=== PATIENT | female | born 1955 | race Caucasian/White ===

== ENCOUNTER 2017-06-09 10:25 | Inpatient (IN) | payer MEDICARE, MEDICAID ==
[~2017-06-09] VITALS: Ht 167.6 cm; Wt 67.9 kg
[~2017-06-09 10:25] MED LIST: ACET-784 PO; ACTONEL PO; ASPIRIN PO; AUD NEB; AZIT250T9 PO; BISA10S PR; CALC-959 PO; CEFX1I IM; DEXT15DR21 OU; DSS100 PO; FISH1CAP49 PO; FLUT16H NASAL; FOLI1 PO; HEP5KI SQ; LEVO75 PO; MOM30 PO; MONT10TA21 PO; MULTIVITAMIN PO; NORM2DIS4 IVP; PANT20TA PO; UBID100C PO; VITAMIN C PO; ZOCOR PO
[2017-06-09] MEDS ORDERED: IPRATROPIUM BROMIDE 0.5 MG/2.5 ML NEB SOLUTION NEB ONE (10:45)
[2017-06-09] MEDS ORDERED: LEVALBUTEROL HCL 1.25 MG/0.5 ML NEB SOLUTION NEB ONE (10:45)
[2017-06-09] MEDS ORDERED: SODIUM CHLORIDE 0.9% 2,000 ML IV ONE (10:45)
[2017-06-09] MEDS ORDERED: ACETAMINOPHEN 500 MG TABLET PO ONE (10:45)
[2017-06-09 11:10] LABS: BASOPHILS % (AUTO) 0.2 % (0.0-2.0); EOSINOPHILS % (AUTO) 0.4 % (1.0-6.0); HEMATOCRIT 45.1 % (36-46); HEMOGLOBIN 14.9 g/dL (12.0-16.0); LYMPHOCYTES # (AUTO) 1.2 K/uL (1.0-4.8); LYMPHOCYTES % (AUTO) 7.1 % (22.0-44.0); MEAN CORPUSCULAR HEMOGLOBIN 27.8 pg (26.0-34.0); MEAN CORPUSCULAR VOLUME 84 fL (80-100); MONOCYTES # (AUTO) 0.5 K/uL (0.1-1.0); MONOCYTES % (AUTO) 2.6 % (2.0-9.0); NEUTROPHILS # (AUTO) 15.9 K/uL (1.8-7.7); PLATELET COUNT (AUTO) 158 K/uL (150-450); RED BLOOD CELL COUNT(AUTO) 5.37 MIL/uL (4.00-5.20); RED CELL DISTRIBUTION WIDTH 15.7 % (11.5-14.5)
[2017-06-09 11:11] LABS: NEUTROPHILS % (AUTO) 89.7 % (40.0-70.0)
[2017-06-09] MEDS ORDERED: RISE35 PO (11:15)
[2017-06-09] MEDS ORDERED: ASCO500 PO (11:15)
[2017-06-09] MEDS ORDERED: ASPI81 PO (11:15)
[2017-06-09] MEDS ORDERED: ACETAMINOPHEN 1000 MG/ISO-OSM 100 ML IV ONE (11:15)
[2017-06-09] MEDS ORDERED: MULT1TAB70 PO (11:15)
[2017-06-09] MEDS ORDERED: SIMV-259 PO (11:15)
[2017-06-09] MEDS ORDERED: PANT40TA25 PO (11:15)
[2017-06-09 11:18] LABS: ANION GAP 9 mmol/L (8-16); CALCIUM, TOTAL 9.6 mg/dL (8.8-10.5); CARBON DIOXIDE 28 mmol/L (22-29); CHLORIDE 105 mmol/L (98-107); CREATININE 0.56 mg/dL (0.60-1.30); GLOMERULAR FILTR. RATE CALC > 60 mL/min (>60); GLUCOSE,RANDOM 103 mg/dL (70-110); POTASSIUM 4.4 mmol/L (3.5-5.1); SODIUM SERUM 142 mmol/L (136-145); UREA NITROGEN, BLOOD 21 mg/dL (7-18)
[2017-06-09 11:24] LABS: ALANINE AMINOTRANSFERASE 21 U/L (12-78); ALBUMIN 3.3 g/dL (3.4-5.0); ALKALINE PHOSPHATASE 117 U/L (46-116); ASPARTATE AMINOTRANSFERASE 17 U/L (15-37); BILIRUBIN,TOTAL 0.3 mg/dL (0.1-1.0); TOTAL PROTEIN, SERUM 8.6 g/dL (6.4-8.2)
[2017-06-09 11:27] LABS: LACTIC ACID 1.7 mmol/L (0.4-2.0)
[2017-06-09 11:34] LABS: APPEARANCE,URINE CLOUDY (CLEAR); BILIRUBIN,URINE NEGATIVE (NEGATIVE); GLUCOSE, URINE (UA) NEGATIVE (NEGATIVE); KETONES,URINE NEGATIVE (NEGATIVE); LEUKOCYTE ESTERASE ,URINE LARGE (NEGATIVE); NITRATE,URINE NEGATIVE (NEGATIVE); OCCULT BLOOD,URINE MODERATE (NEGATIVE); PH,URINE 6.5 (5.0-8.0); PROTEIN,URINE TRACE (NEGATIVE); UROBILINOGEN,URINE 0.2 mg/dL (<=1.0)
[2017-06-09 11:43] LABS: WBC,URINE 26-50 /HPF (0-5)
[2017-06-09 11:44] LABS: BACTERIA,URINE Many /HPF (None Seen); SQUAMOUS EPITHELIAL CELL,UR Many /LPF (None Seen)
[2017-06-09 11:51] LABS: B-TYPE NATRIURETIC PEPTIDE 20 pg/mL (0-100)
[2017-06-09 12:13] LABS: INFLUENZA TYPE A NEGATIVE FOR TYPE A (NEGATIVE)
[2017-06-09 12:14] LABS: INFLUENZA TYPE B NEGATIVE FOR TYPE B (NEGATIVE)
[2017-06-09] MEDS ORDERED: ACETAMINOPHEN 325 MG TABLET PO PRN ×2 (12:45→15:15)
[2017-06-09] MEDS ORDERED: 0.9% SODIUM CHLORIDE 10 ML SYRINGE IVP PRN (12:45)
[2017-06-09] MEDS ORDERED: CefTRIAXone SODIUM 1 GM in DEXTROSE 5%-WATER 10 ML IV ONE (12:45)
[2017-06-09] MEDS ORDERED: AZITHROMYCIN 500 MG/NS 250 ML IV ONE (12:45)
[2017-06-09] MEDS ORDERED: SODIUM CHLORIDE 0.9% 1,000 ML IV ONE ×2 (12:45→15:15)
[2017-06-09] MEDS ORDERED: ONDANSETRON HCL 4 MG/2 ML VIAL IVP PRN ×2 (12:45→15:15)
[2017-06-09] MEDS: ALBUTEROL SULFATE 2.5 MG/0.5 ML NEB SOLUTION NEB SCH ×3 (15:14→23:14)
[2017-06-09] MEDS: IPRATROPIUM BROMIDE 0.5 MG/2.5 ML NEB SOLUTION NEB SCH ×3 (15:14→23:14)
[2017-06-09] MEDS ORDERED: *CLINICAL-LEVOFLOXACIN IVPB DOSING CLINICAL ONE (15:15)
[2017-06-09] MEDS ORDERED: MAGNESIUM HYDROXIDE SUSPENSION 30 ML UDCUP PO PRN (15:15)
[2017-06-09] MEDS ORDERED: BISACODYL 10 MG RECTAL RECTAL SUPPOSITORY PR PRN (15:15)
[2017-06-09] MEDS ORDERED: MORPHINE SULFATE 4 MG/ML SYRINGE IVP PRN (15:15)
[2017-06-09] MEDS ORDERED: HYDROCODONE/ACETAMINOPHEN 5-325 MG TABLET PO PRN (15:15)
[2017-06-09] MEDS ORDERED: ZOLPIDEM TARTRATE 5 MG TABLET PO PRN (15:15)
[2017-06-09 15:17] VITALS: BP 100/70
[2017-06-09] MEDS: ASPIRIN 81 MG CHEWABLE TABLET PO SCH (16:59)
[2017-06-09] MEDS: LEVOFLOXACIN 750 MG/D5% WATER 150 ML IV SCH (16:59)
[2017-06-09] MEDS: HEPARIN SODIUM,PORCINE 5,000 UNITS/ML VIAL SQ SCH ×2 (16:59→23:45)
[2017-06-09 19:41] VITALS: BP 132/67
[2017-06-09] MEDS: DOCUSATE SODIUM 100 MG CAPSULE PO SCH (21:00)
[2017-06-09] MEDS: SIMVASTATIN 10 MG TABLET PO SCH (22:17)
[2017-06-10] VITALS (7 sets, daily range): BP systolic 111–134; BP diastolic 68–78
[2017-06-10] MEDS: LEVOTHYROXINE SODIUM 75 MCG TABLET PO SCH (06:30)
[2017-06-10] MEDS: DOCUSATE SODIUM 100 MG CAPSULE PO SCH ×2 (09:00→20:05)
[2017-06-10] MEDS: FLUTICASONE PROPIONATE 50 MCG/SPRAY 16 GM NASAL SPRAY NASAL SCH (09:15)
[2017-06-10] MEDS: HEPARIN SODIUM,PORCINE 5,000 UNITS/ML VIAL SQ SCH ×2 (09:15→15:19)
[2017-06-10] MEDS: PANTOPRAZOLE SODIUM 40 MG DR TABLET PO SCH (14:06)
[2017-06-10] MEDS: UBIDECARENONE 100 MG CAPSULE PO SCH (14:06)
[2017-06-10] MEDS: FOLIC ACID 1 MG TABLET PO SCH (14:06)
[2017-06-10] MEDS: CALCIUM OYSTER SHELL 250 MG-VIT D3 125 UNITS TABLET PO SCH (14:06)
[2017-06-10] MEDS: MONTELUKAST SODIUM 10 MG TABLET PO SCH (14:07)
[2017-06-10] MEDS: ASCORBIC ACID 500 MG TABLET PO SCH (14:07)
[2017-06-10] MEDS: LEVOFLOXACIN 750 MG/D5% WATER 150 ML IV SCH (15:19)
[2017-06-10] MEDS ORDERED: SODIUM CHLORIDE 0.9% 100 ML ONE (15:30)
[2017-06-10] MEDS: SIMVASTATIN 10 MG TABLET PO SCH (17:55)
[2017-06-10] MEDS: ASPIRIN 81 MG CHEWABLE TABLET PO SCH (17:55)
[2017-06-11] MEDS: HEPARIN SODIUM,PORCINE 5,000 UNITS/ML VIAL SQ SCH ×3 (00:35→15:19)
[2017-06-11 04:24] VITALS: BP 105/77
[2017-06-11] MEDS: LEVOTHYROXINE SODIUM 75 MCG TABLET PO SCH (06:06)
[2017-06-11 06:25] LABS: BASOPHILS % (AUTO) 0.2 % (0.0-2.0); EOSINOPHILS % (AUTO) 1.9 % (1.0-6.0); HEMATOCRIT 39.9 % (36-46); HEMOGLOBIN 13.6 g/dL (12.0-16.0); LYMPHOCYTES # (AUTO) 2.1 K/uL (1.0-4.8); LYMPHOCYTES % (AUTO) 25.4 % (22.0-44.0); MEAN CORPUSCULAR HEMOGLOBIN 28.9 pg (26.0-34.0); MEAN CORPUSCULAR HGB CONC 34.2 G/dL (31.0-37.0); MEAN CORPUSCULAR VOLUME 84 fL (80-100); MONOCYTES # (AUTO) 0.5 K/uL (0.1-1.0); MONOCYTES % (AUTO) 5.9 % (2.0-9.0); NEUTROPHILS # (AUTO) 5.5 K/uL (1.8-7.7); NEUTROPHILS % (AUTO) 66.6 % (40.0-70.0); PLATELET COUNT (AUTO) 150 K/uL (150-450); RED BLOOD CELL COUNT(AUTO) 4.73 MIL/uL (4.00-5.20); RED CELL DISTRIBUTION WIDTH 15.7 % (11.5-14.5)
[2017-06-11 06:39] LABS: ANION GAP 10 mmol/L (8-16); CALCIUM, TOTAL 8.9 mg/dL (8.8-10.5); CARBON DIOXIDE 23 mmol/L (22-29); CHLORIDE 110 mmol/L (98-107); CREATININE 0.44 mg/dL (0.60-1.30); GLOMERULAR FILTR. RATE CALC > 60 mL/min (>60); GLUCOSE,RANDOM 90 mg/dL (70-110); POTASSIUM 3.7 mmol/L (3.5-5.1); SODIUM SERUM 143 mmol/L (136-145); UREA NITROGEN, BLOOD 12 mg/dL (7-18)
[2017-06-11 07:22] VITALS: BP 110/72
[2017-06-11] MEDS: UBIDECARENONE 100 MG CAPSULE PO SCH (08:25)
[2017-06-11] MEDS: FLUTICASONE PROPIONATE 50 MCG/SPRAY 16 GM NASAL SPRAY NASAL SCH (08:25)
[2017-06-11] MEDS: FOLIC ACID 1 MG TABLET PO SCH (08:26)
[2017-06-11] MEDS: CALCIUM OYSTER SHELL 250 MG-VIT D3 125 UNITS TABLET PO SCH (08:26)
[2017-06-11] MEDS: DOCUSATE SODIUM 100 MG CAPSULE PO SCH ×2 (08:26→20:50)
[2017-06-11] MEDS: PANTOPRAZOLE SODIUM 40 MG DR TABLET PO SCH (08:26)
[2017-06-11] MEDS: MONTELUKAST SODIUM 10 MG TABLET PO SCH (08:26)
[2017-06-11] MEDS: ASCORBIC ACID 500 MG TABLET PO SCH (08:26)
[2017-06-11 11:32] VITALS: BP 108/70
[2017-06-11] MEDS ORDERED: IPRATROPIUM BROMIDE 0.5 MG/2.5 ML NEB SOLUTION NEB PRN (12:30)
[2017-06-11] MEDS ORDERED: ALBUTEROL SULFATE 2.5 MG/0.5 ML NEB SOLUTION NEB PRN (12:30)
[2017-06-11] MEDS: LEVOFLOXACIN 750 MG/D5% WATER 150 ML IV SCH (15:19)
[2017-06-11 15:26] VITALS: BP 115/76
[2017-06-11] MEDS: SIMVASTATIN 10 MG TABLET PO SCH (18:12)
[2017-06-11] MEDS: ASPIRIN 81 MG CHEWABLE TABLET PO SCH (18:12)
[2017-06-11 19:04] VITALS: BP 117/76
[2017-06-12] VITALS (7 sets, daily range): BP systolic 110–130; BP diastolic 56–87
[2017-06-12] MEDS: HEPARIN SODIUM,PORCINE 5,000 UNITS/ML VIAL SQ SCH ×2 (00:02→08:43)
[2017-06-12] MEDS: LEVOTHYROXINE SODIUM 75 MCG TABLET PO SCH (06:03)
[2017-06-12 06:28] LABS: BASOPHILS % (AUTO) 0.4 % (0.0-2.0); EOSINOPHILS % (AUTO) 2.1 % (1.0-6.0); HEMATOCRIT 41.6 % (36-46); HEMOGLOBIN 13.9 g/dL (12.0-16.0); LYMPHOCYTES # (AUTO) 1.7 K/uL (1.0-4.8); LYMPHOCYTES % (AUTO) 19.7 % (22.0-44.0); MEAN CORPUSCULAR HEMOGLOBIN 28.1 pg (26.0-34.0); MEAN CORPUSCULAR HGB CONC 33.5 G/dL (31.0-37.0); MEAN CORPUSCULAR VOLUME 84 fL (80-100); MONOCYTES # (AUTO) 0.4 K/uL (0.1-1.0); MONOCYTES % (AUTO) 4.5 % (2.0-9.0); NEUTROPHILS # (AUTO) 6.5 K/uL (1.8-7.7); NEUTROPHILS % (AUTO) 73.3 % (40.0-70.0); PLATELET COUNT (AUTO) 163 K/uL (150-450); RED BLOOD CELL COUNT(AUTO) 4.97 MIL/uL (4.00-5.20); RED CELL DISTRIBUTION WIDTH 15.6 % (11.5-14.5)
[2017-06-12] MEDS: UBIDECARENONE 100 MG CAPSULE PO SCH (08:43)
[2017-06-12] MEDS: ASCORBIC ACID 500 MG TABLET PO SCH (08:44)
[2017-06-12] MEDS: FOLIC ACID 1 MG TABLET PO SCH (08:44)
[2017-06-12] MEDS: FLUTICASONE PROPIONATE 50 MCG/SPRAY 16 GM NASAL SPRAY NASAL SCH (08:44)
[2017-06-12] MEDS: CALCIUM OYSTER SHELL 250 MG-VIT D3 125 UNITS TABLET PO SCH (08:44)
[2017-06-12] MEDS: DOCUSATE SODIUM 100 MG CAPSULE PO SCH ×2 (08:44→19:21)
[2017-06-12] MEDS: PANTOPRAZOLE SODIUM 40 MG DR TABLET PO SCH (08:44)
[2017-06-12] MEDS: MONTELUKAST SODIUM 10 MG TABLET PO SCH (08:44)
[2017-06-12] MEDS: DEXTROSE 5%-0.45% SODIUM CHL 1,000 ML IV SCH (11:39)
[2017-06-12] MEDS: LEVOFLOXACIN 750 MG/D5% WATER 150 ML IV SCH (17:24)
[2017-06-12] MEDS: SIMVASTATIN 10 MG TABLET PO SCH (19:00)
[2017-06-13 05:12] VITALS: BP 130/70
[2017-06-13] MEDS: LEVOTHYROXINE SODIUM 75 MCG TABLET PO SCH (05:43)
[2017-06-13 06:48] LABS: BASOPHILS % (AUTO) 0.6 % (0.0-2.0); EOSINOPHILS % (AUTO) 3.4 % (1.0-6.0); HEMATOCRIT 40.7 % (36-46); HEMOGLOBIN 13.6 g/dL (12.0-16.0); LYMPHOCYTES # (AUTO) 1.7 K/uL (1.0-4.8); LYMPHOCYTES % (AUTO) 29.1 % (22.0-44.0); MEAN CORPUSCULAR HGB CONC 33.4 G/dL (31.0-37.0); MEAN CORPUSCULAR VOLUME 84 fL (80-100); MONOCYTES # (AUTO) 0.3 K/uL (0.1-1.0); MONOCYTES % (AUTO) 5.6 % (2.0-9.0); NEUTROPHILS # (AUTO) 3.7 K/uL (1.8-7.7); NEUTROPHILS % (AUTO) 61.3 % (40.0-70.0); PLATELET COUNT (AUTO) 163 K/uL (150-450); RED BLOOD CELL COUNT(AUTO) 4.87 MIL/uL (4.00-5.20); RED CELL DISTRIBUTION WIDTH 15.4 % (11.5-14.5)
[2017-06-13] MEDS: DEXTROSE 5%-0.45% SODIUM CHL 1,000 ML IV SCH (06:50)
[2017-06-13] MEDS: UBIDECARENONE 100 MG CAPSULE PO SCH (07:16)
[2017-06-13] MEDS: MONTELUKAST SODIUM 10 MG TABLET PO SCH (07:17)
[2017-06-13] MEDS: CALCIUM OYSTER SHELL 250 MG-VIT D3 125 UNITS TABLET PO SCH (07:17)
[2017-06-13] MEDS: DOCUSATE SODIUM 100 MG CAPSULE PO SCH ×2 (07:17→20:42)
[2017-06-13] MEDS: ASCORBIC ACID 500 MG TABLET PO SCH (07:17)
[2017-06-13] MEDS: FOLIC ACID 1 MG TABLET PO SCH (07:17)
[2017-06-13 07:47] VITALS: BP 148/63
[2017-06-13] MEDS: FLUTICASONE PROPIONATE 50 MCG/SPRAY 16 GM NASAL SPRAY NASAL SCH (08:51)
[2017-06-13] MEDS ORDERED: PANTOPRAZOLE SODIUM 40 MG/VIAL IVP SCH (09:00)
[2017-06-13 11:18] VITALS: BP 130/69
[2017-06-13 11:30] LABS: PROTHROMBIN TIME 10.5 SEC (9.4-11.6)
[2017-06-13] MEDS ORDERED: SODIUM CHLORIDE 0.9% 1,000 ML IV ONE ×2 (13:15→13:20)
[2017-06-13 16:21] VITALS: BP 124/71
[2017-06-13] MEDS: LEVOFLOXACIN 750 MG/D5% WATER 150 ML IV SCH (16:50)
[2017-06-13] MEDS ORDERED: LEVO500 PO (19:16)
[2017-06-13 20:08] VITALS: BP 138/77
[2017-06-13] MEDS: SIMVASTATIN 10 MG TABLET PO SCH (20:42)
[2017-06-13] MEDS ORDERED: KETOCONAZOLE 2% 15 GM CREAM TP SCH (21:00)
[2017-06-13] MEDS ORDERED: PROPOFOL 1% 20 ML VIAL IVP ONE (21:44)
[2017-06-13] MEDS ORDERED: LIDOCAINE HCL/PF 2% 5 ML SYRINGE IVP ONE (21:44)
[2017-06-14] MEDS ORDERED: POVIDONE-IODINE 10% 120 ML SOLUTION TP SCH (09:00)
[2017-06-14] MEDS ORDERED: HYDROGEN PEROXIDE 473 ML SOLUTION TP SCH (09:00)
== END 2017-06-13 21:45 | disposition home or self-care (01) | DRG 871 ==
LOC: EMS 10:26 → 5N 12:37
PROVIDERS: ADMIT Internal Medicine; ATTEND Internal Medicine
PROC: 3E0G76Z Introduction of Nutritional Substance into Upper GI, Via Natural or Artificial Opening (ICD-10-PCS; 2017-06-13)
PROC: 0DH63UZ Insertion of Feeding Device into Stomach, Percutaneous Approach (ICD-10-PCS; principal; 2017-06-13 15:00)
DX: A41.9 Sepsis, unspecified organism (principal); J18.9 Pneumonia, unspecified organism; E44.0 Moderate protein-calorie malnutrition; G81.91 Hemiplegia, unspecified affecting right dominant side; F03.90 Unspecified dementia, unspecified severity, without behavioral disturbance, psychotic disturbance, mood disturbance, and anxiety; N39.0 Urinary tract infection, site not specified; G40.909 Epilepsy, unspecified, not intractable, without status epilepticus; J45.909 Unspecified asthma, uncomplicated; M85.80 Other specified disorders of bone density and structure, unspecified site; R13.10 Dysphagia, unspecified; Z87.01 Personal history of pneumonia (recurrent); Z87.440 Personal history of urinary (tract) infections; Z87.442 Personal history of urinary calculi; Z88.8 Allergy status to other drugs, medicaments and biological substances; Z88.0 Allergy status to penicillin
CPT/HCPCS: 51702; 83605; 87040; 87076; 87081; 87086; 87147; 87205; 87804; 92526; 92610; 93005; 94640; 94644; C9113; J0131; J0696; J1644; J1956; J2704; J3490; J7030; J7050; J7060